=== PATIENT | male | born 1975 | race Hispanic/Latino ===

== ENCOUNTER 2020-12-17 10:06 | Emergency (ER) ==
[2020-12-17] MEDS ORDERED: Ondansetron PF 4 MG/2 ML Vial ONE (10:33)
[2020-12-17] MEDS ORDERED: Acetaminophen 500 MG TAB ONE (10:33)
[2020-12-17 10:51] LABS: #Lymphocytes 0.7 thou/uL (1.20-3.40); #Monocytes 0.4 thou/uL (0.11-0.59); #Neutrophils 7.2 thou/uL (1.40-6.50); %Basophils 0.5 % (0.0-1.0); %Eosinophils 0.1 % (0.0-10.0); %Lymphocytes 8.3 % (21.0-51.0); %Monocytes 4.8 % (0.0-10.0); %Neutrophils 86.3 % (42.0-75.0); Hemoglobin 13.6 g/dL (14.0-18.0); Mean Corpuscular HGB CONC 33.4 g/dL (32.0-36.0); Mean Corpuscular Hemoglobin 29.7 pg (27.0-31.0); Mean Platelet Volume 7.1 fL (7.4-10.4); Platelet Count 245 thou/uL (130-400); RBC Distribution Width 12.2 % (11.5-14.5); Red Blood Cell (RBC) Count 4.58 mill/uL (4.70-6.10); White Blood Cell (WBC) Count 8.3 thou/uL (4.8-10.8)
[2020-12-17 11:12] LABS: ALT (SGPT) 56 U/L (8-55); AST (SGOT) 54 U/L (5-34); Albumin 3.9 g/dL (3.5-5.0); Alkaline Phosphatase 65 U/L (40-110); Anion Gap 14 mmol/L (10-20); BUN (Urea Nitrogen) 8 mg/dL (8.9-20.6); Bilirubin, Total 0.6 mg/dL (0.2-1.2); Calc. Creatinine Clearance 0 mL/min (70-130); Calcium 8.6 mg/dL (7.8-10.44); Carbon Dioxide 24 mmol/L (22-29); Chloride 103 mmol/L (98-107); Globulin 3.8 g/dL (2.4-3.5); Glucose 146 mg/dL (70-105); Potassium 3.8 mmol/L (3.5-5.1); Protein, Total 7.7 g/dL (6.0-8.3); Sodium 137 mmol/L (136-145)
[2020-12-17] MEDS ORDERED: Dexamethasone 10 MG/ML VIAL ONE (11:54)
== END 2020-12-17 12:29 | disposition home or self-care (01) ==
LOC: ERS 10:06
DX: U07.1 COVID-19 (principal); J12.82 Pneumonia due to coronavirus disease 2019
CPT/HCPCS: 36415; 71045; 80053; 83605; 84484; 85025; 85379; 93005; 96374; 96375; J1100; J2405

== ENCOUNTER 2020-12-20 06:46 | Emergency (ER) | payer SELFPAY ==
[2020-12-20] MEDS ORDERED: Fentanyl 100 MCG/2 ML VIAL ONE (07:27)
[2020-12-20] MEDS ORDERED: Aspirin Chewable 81 MG TAB ONE (07:28)
[2020-12-20] MEDS ORDERED: Albuterol 200 PUFF (6.7GM INHALER) ONE (07:28)
[2020-12-20 07:40] LABS: #Basophils 0.2 thou/uL (0.0-0.2); #Monocytes 0.5 thou/uL (0.11-0.59); %Basophils 2.8 % (0.0-1.0); %Eosinophils 0.2 % (0.0-10.0); %Lymphocytes 14.9 % (21.0-51.0); %Monocytes 7.2 % (0.0-10.0); Hemoglobin 13.4 g/dL (14.0-18.0); Mean Corpuscular HGB CONC 33.7 g/dL (32.0-36.0); Mean Corpuscular Hemoglobin 30.3 pg (27.0-31.0); Mean Platelet Volume 6.8 fL (7.4-10.4); Platelet Count 390 thou/uL (130-400); RBC Distribution Width 12.2 % (11.5-14.5); Red Blood Cell (RBC) Count 4.43 mill/uL (4.70-6.10); White Blood Cell (WBC) Count 6.7 thou/uL (4.8-10.8)
[2020-12-20 08:01] LABS: ALT (SGPT) 115 U/L (8-55); AST (SGOT) 56 U/L (5-34); Albumin 3.5 g/dL (3.5-5.0); Alkaline Phosphatase 73 U/L (40-110); Anion Gap 14 mmol/L (10-20); BUN (Urea Nitrogen) 12 mg/dL (8.9-20.6); Bilirubin, Total 0.5 mg/dL (0.2-1.2); Calc. Creatinine Clearance 0 mL/min (70-130); Calcium 8.6 mg/dL (7.8-10.44); Carbon Dioxide 23 mmol/L (22-29); Chloride 106 mmol/L (98-107); Glucose 179 mg/dL (70-105); Lipase 65 U/L (8-78); Potassium 3.5 mmol/L (3.5-5.1); Protein, Total 7.5 g/dL (6.0-8.3); Sodium 139 mmol/L (136-145)
[2020-12-20] MEDS ORDERED: Dexamethasone 10 MG/ML VIAL ONE (08:11)
[2020-12-20] MEDS ORDERED: Iopamidol-370 76% 500 ML 1 ML ONE (10:16)
== END 2020-12-20 09:27 | disposition home or self-care (01) ==
LOC: ERS 06:46
DX: U07.1 COVID-19 (principal); J12.82 Pneumonia due to coronavirus disease 2019; R00.0 Tachycardia, unspecified
CPT/HCPCS: 36415; 71275; 80053; 82550; 83605; 83690; 84484; 85025; 85379; 87040; 93005; 94760; 96374; 96375; J1100; J3010; Q9967